=== PATIENT | female | born 1950 | race Caucasian/White ===

== ENCOUNTER 2020-08-05 22:55 | Inpatient (IN) | payer OTHER ==
[~2020-08-05] VITALS: Ht 172.7 cm; Wt 66.3 kg
[2020-08-05 22:57] VITALS: BP 110/61
[2020-08-05] MEDS ORDERED: TRAZODONE HCL50 MG (23:09)
[2020-08-05] MEDS ORDERED: XANAX1 MG PO (23:10)
--- NOTE | 2020-08-05 23:11 | NUR ---
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
[2020-08-05 23:48] LABS: ABSOLUTE NEUTROPHILS 6.3 thou/uL (1.4-8.2); BASOPHILS 0.7 % (0.0-2.0); EOSINOPHILS 1.1 % (0.0-3.0); HEMATOCRIT 37.4 % (37.0-47.0); HEMOGLOBIN 12.2 gm/dL (12.0-15.0); LYMPHOCYTES 19.7 % (24.0-44.0); MCHC 32.6 g/dL (28.0-37.0); MCV 89.1 fL (80.0-100.0); MONOCYTES 7.2 % (1.0-8.0); PLATELET COUNT 233 thou/uL (150-400); POLYS 71.3 % (36.0-66.0); RBC 4.19 mil/uL (4.20-5.00); RDW 15.2 % (10.5-14.5); WBC 8.8 thou/uL (4.0-11.0)
[2020-08-05 23:53] LABS: URINE BILIRUBIN NEGATIVE (Negative); URINE BLOOD NEGATIVE (Negative); URINE CLARITY CLEAR; URINE COLOR YELLOW; URINE GLUCOSE-RANDOM* NEGATIVE (Negative); URINE KETONES TRACE (Negative); URINE NITRITE-REFLEX NEGATIVE (Negative); URINE PROTEIN (DIPSTICK) NEGATIVE (Negative); URINE UROBILINOGEN 0.2 E.U./dl (0.2-1.0)
[2020-08-05 23:54] LABS: URINE LEUKOCYTES-REFLEX 1+ (Negative)
[2020-08-05 23:57] LABS: ANION GAP 12 mmol/L (7-16); BUN 20 mg/dL (7-18); CALCIUM 9.1 mg/dL (8.5-10.1); CHLORIDE 101 mmol/L (98-107); CO2 23 mmol/L (21-32); CREATININE 1.1 mg/dL (0.6-1.0); GLUCOSE 219 mg/dL (74-106); POTASSIUM 3.8 mmol/L (3.5-5.1); SODIUM 136 mmol/L (136-145)
[2020-08-06] VITALS (7 sets, daily range): BP systolic 94–128; BP diastolic 50–65
[2020-08-06 00:02] LABS: AMP/METHAMP Negative (Negative); BARBITURATES Negative (Negative); BENZODIAZEPINES POSITIVE (Negative); COCAINE Negative (Negative); METHADONE Negative (Negative); OPIATES Negative (Negative); PCP Negative (Negative)
[2020-08-06 00:04] LABS: BACTERIA-REFLEX 1-9 Few /HPF (None Seen); HYALINE CASTS 4-10 Moderate /LPF (None Seen); MUCUS 0-3 Light strn/LPF (None Seen); SQUAMOUS 4-10 Moderate /LPF (0-3); URINE RBC 0-2 Rare /HPF (0-2)
[2020-08-06 00:05] LABS: CRYSTALS None Seen /LPF (None Seen); WBC CLUMPS Few (None Seen)
[2020-08-06 00:07] LABS: ALBUMIN 3.9 g/dL (3.4-5.0); MAGNESIUM 1.8 mg/dL (1.8-2.4); SALICYLATE < 2.8 mg/dL (2.8-20.0); SGOT 26 U/L (15-37); SGPT 17 U/L (30-65); TOTAL BILIRUBIN 0.3 mg/dL (0.2-1.0); TOTAL PROTEIN 7.4 g/dL (6.4-8.2); TROPONIN-I <0.06 ng/mL (<0.06)
--- NOTE | 2020-08-06 04:00 | NUR ---
PT ARRIVED TO THE UNIT AT AROUND 0200 HRS. PT WITH SITTER. PT TALKING ENDLESSLY AND VERY RESTLESS. WALKED TO THE BATHROOM AND VOIDING OKAY. PT STATING FAMILY TRICKED INTO BRINGING HER TO THE HOSPITAL. KNOWS HER NAME, AND TIME.SHE HAS CLEAR SPEECH.REFUSED TO GIVE ME NAME OF PHARMACY BEAUSE SHE SAYS ALL PRESCRIPTIONS THEY HAVE IS WRONG.TOOK MEDS OKAY. NO SWALLOW ISSUES. SKIN INTACT, JUST SOME BRUISING TO HANDS. SOME SWELLING TO LEGS., MORE TO THE LEFT.AFTER A WHILE PATIENT SLEPT IN CHAIR. SHE USES /NC AT [facility]. REPORT GIVEN TO DAY SHIFT [email or web address].
--- NOTE | 2020-08-06 09:30 | EKG ---
[facility] [address] [place] [address] ELECTROCARDIOGRAM REPORT Name: JUAQUINMANUEL Room #: 435- ADM IN M.R.#: [id number] Admission: 08/06/20 Attend Phys: Souleymane Rogers MD Discharge: Date of : 52 Report #: [id number] THIS REPORT FOR: cc: Physician not on staff Physician not on staff Ancelmo Santoyo MD [facility] ~ THIS REPORT FOR: //name// [facility] ED Test Date: 2020-08-06 Test Time: 00:44:28 Pat Name: MANUEL REZA Department: Room: [facility] Gender: F Grading Clerk: JOSEE : 1950 Requested By: Félix Mcgowan Order Number: [id number] MD: Ancelmo Santoyo Measurements Intervals [place] Rate: 106 P: 87 TX: 81 QRS: -16 QRSD: 90 T: 39 QT: 344 QTc: 457 Interpretive Statements Sinus tachycardia Borderline left axis deviation No previous ECG available for comparison Electronically Signed On 08-06-2020 9:30:47 CDT by Ancelmo Santoyo [email or web address] <ELECTRONICALLY SIGNED> By: Ancelmo Santoyo MD, FACC 08/06/2030 0044 0044 Ancelmo Santoyo MD, [facility] /EPI
--- NOTE | 2020-08-06 12:29 | NUR ---
Assumed care of pt at 0700. Pt appears to be manic at this time. Psych doctor saw pt. New orders noted. talked to family member DPOA as well. Pt refuses IV antibiotic. Provider aware. Sitter in the room. 2L O2 at night. Will continue to monitor.
[2020-08-06] MEDS ORDERED: SPIRONOLACTONE50 MG PO (15:38)
[2020-08-06] MEDS ORDERED: LASIX 40 MG TAB40 MG PO (15:56)
[2020-08-06] MEDS ORDERED: KLOR-CON 10 ER10 MEQ PO (15:57)
[2020-08-06] MEDS ORDERED: VITAFOL-OB+DHA1 EACH PO (15:58)
[2020-08-06] MEDS ORDERED: ASA81BEC PO (15:58)
[2020-08-06] MEDS ORDERED: PEPCID40 MG PO (15:58)
--- NOTE | 2020-08-07 04:02 | NUR ---
PT AMBULATING TO BATHROOM INDEPENDENTLY AND IS TOLERATING WELL. DENIES PAIN. SITTER WITH PT. RESTING COMFORTABLY. NO NEEDS VOICED. CALL LIGHT WITHIN REACH. FREQUENT OBSERVATION.
[2020-08-07 05:37] VITALS: BP 115/49
--- NOTE | 2020-08-07 12:42 | NUR ---
PT IS MANIC AND REFUSED ALL MEDICATION EXCEPT MAG CITRATE. PT REPORTS SHE NEEDS 2-3 BOTTLES TO HAVE A BM. PT HAS 1:1 SITTER FOR SAFETY. PT WAS OUT OF CONTROL, COMBATIVE WITH STAFF DURING A MANDATORY IM INJECTION ORDER BY THE DOCTOR. PT WAS SCREAMING AND YELLING AT STAFF. PT PULLED OUT HER OWN IV ON HER RIGHT ARM. PT RECEIVED THE IM INJECTION IN HER RIGHT BUTTOCKS. PT GOT INTO THE WHEELCHAIR AND ALLOWED STAFF TO TAKE HER UP TO THE [facility] UNIT. NURSE AND SUPERVISOR WET ROOM TOOK PT AND HER BELONGINGS. PT'S DAUGHTER WAS ADVISED BY THE DOCTOR THAT THE PT WAS GOING TO 5S UNIT. NURSE GAVE REPORT BEFORE TRANSFER.
[2020-08-07 13:09] LABS: HEMATOCRIT 34.7 % (37.0-47.0); HEMOGLOBIN 11.4 gm/dL (12.0-15.0); MCH 29.4 pg (26.0-34.0); MCHC 32.8 g/dL (28.0-37.0); MCV 89.7 fL (80.0-100.0); RBC 3.87 mil/uL (4.20-5.00); RDW 15.2 % (10.5-14.5); WBC 3.2 thou/uL (4.0-11.0)
[2020-08-07 13:18] LABS: CALCIUM 8.4 mg/dL (8.5-10.1); CREATININE 1.1 mg/dL (0.6-1.0); MAGNESIUM 2.4 mg/dL (1.8-2.4); POTASSIUM 3.6 mmol/L (3.5-5.1)
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
== END 2020-08-07 12:51 | DRG 885 ==
LOC: ER 22:55 → EROBS 08-06 01:07 → 4S 08-06 01:07
PROVIDERS: Emergency Medicine; Nurse Practitioner Family; ADMIT Hospitalist; ATTEND Hospitalist
DX: F23 Brief psychotic disorder (principal); J96.11 Chronic respiratory failure with hypoxia; I50.32 Chronic diastolic (congestive) heart failure; F03.90 Unspecified dementia, unspecified severity, without behavioral disturbance, psychotic disturbance, mood disturbance, and anxiety; G47.33 Obstructive sleep apnea (adult) (pediatric); I48.91 Unspecified atrial fibrillation; F41.9 Anxiety disorder, unspecified; F31.9 Bipolar disorder, unspecified; N31.2 Flaccid neuropathic bladder, not elsewhere classified; Z60.2 Problems related to living alone; K59.00 Constipation, unspecified; Z96.653 Presence of artificial knee joint, bilateral; Z90.710 Acquired absence of both cervix and uterus; Z79.82 Long term (current) use of aspirin; Z87.891 Personal history of nicotine dependence; Z79.899 Other long term (current) drug therapy; Z90.49 Acquired absence of other specified parts of digestive tract; Z20.828 Contact with and (suspected) exposure to other viral communicable diseases
CPT/HCPCS: 10195

== ENCOUNTER 2020-08-07 12:52 | Inpatient (IN) | payer OTHER ==
[~2020-08-07] VITALS: Ht 167.6 cm; Wt 69.1 kg
[~2020-08-07 12:52] MED LIST: ASA81BEC PO; KLOR-CON 10 ER10 MEQ PO; LASIX 40 MG TAB40 MG PO; PEPCID40 MG PO; SPIRONOLACTONE50 MG PO; TRAZODONE HCL50 MG; VITAFOL-OB+DHA1 EACH PO; XANAX1 MG PO
[2020-08-07 14:00] VITALS: BP 100/63
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
--- NOTE | 2020-08-07 18:41 | NUR ---
Spoke to pt's daughter/DPOA, Mei [phone]. She inquired about treatment plan. She stated the DPOA has been enacted, as such, she would like her mother to be placed in a facility. The two facilities she would like to consider are: [facility] in [place], [place] and [facility] in [place], [place]. SW informed dtr, that SW team will assist with the discharge process based on recommendations. SW team will continue to follow throughout hospitalization.
[2020-08-07 19:22] VITALS: BP 104/52
[2020-08-07 23:33] VITALS: BP 104/52
--- NOTE | 2020-08-08 03:02 | NUR ---
Assumed care of patient this pm shift. Patient is frustrated and irritable and jenna often. Patient feels as though she would benefit from care moreso at . Patient is alert and oriented x4. Patient did not want to take medication this pm shift but with much explanation decided to as opposed to a shot. Patient has many medical issues and a great understanding of how she believes treatment should be continued. Patient states that she has disowned her children because they do not have time for her and want her money. Patients assessment shows no signs of acute distress. Oxygen was placed on patient at approximately 1230 am at 2 liters/min. Patients mood has been variable all evening. We will continue to monitor patient per hospital policy.
[2020-08-08 07:46] VITALS: BP 80/44
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
--- NOTE | 2020-08-08 14:14 | NUR ---
RONALD reviewed pt's chart and did not see DPOA doc. RONALD contacted Mei and introduced herself as well as left contact information. RONALD asked Mei to email a copy of Dpoa doc. She did so. RONALD placed the doc in pt's chart. RONALD spoke with pt who said she is not manic and wants to be d/c'd home. RONALD and talked with pt about DPOA. Pt said she revoked it verbally. RONALD explained they need a document dated after her initial DPOA doc in January 2018. She said she does not have that. She said she , in her words, acts "crazy" when placement is brought up. SW explained that does not help her case. Pt responded that she has a neuropsych exam scheduled this week. She denies being manic. RONALD and Dr. Silva observed pt's speach be hyperverbal. After RONALD left pt's room she observed from the nursing stating pt make and remake her bed several times. RONALD team will continue to follow pt during her stay on this unit.
[2020-08-08 17:30] VITALS: BP 105/53; BP 114/48; BP 96/63
--- NOTE | 2020-08-08 19:15 | NUR ---
0700 ASSUMED CARE OF PATIENT PATIENT IN BED AT THAT TIME SLEEPING. PATIENT CALM AND COOPERATIVE. PATIENT OUT TO DAYROOM REQUESTING COFFEE. PATIENT TAKES MEDICATION WHOLE WITHOUT DIFFICULTY AFTER DISCUSSING MEDICATIONS WITH DR NICHOLE. PATIENT AMBULATES WITH STEADY GAIT. NO C/O PAIN. PATIENT CONCERN IS SHE NEEDS HER CARDIOMEMZ TO DO HER DAILY RECORDING. PATIENT REQUESTING BED AJUSTMENT MULTIPLE TIMES THROUGHOUT THE DAY. PATIENT COMPLAINING OF HOSPITAL STAY AND REQUESTING TO BE TRANSFERED TO . PATIENT WAS NOTED OUT IN DAYROOM MORE THIS AFTERNOON AND COMMUNICATING WITH OTHERS.
[2020-08-08 19:31] VITALS: BP 119/58
--- NOTE | 2020-08-08 22:08 | NUR ---
Care assumed of patient at 1915: Patient seated in dayroom, watching football at start of shift. Patient alert and oriented x4. Patient expansive, excessive speech, easily irritable. Denies pain and discomfort. Denies SI/HI/AH/VH. 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 This could be accurate to an extent. Patient took HS medication whole without difficulty. Patient cooperative with medication and reports understanding. Patient ate 100% HS snack. Blood pressure WNL this evening. Patient retired to bed, O2 NC placed with 2L continuous. Sitter at bedside. However, patient remains awake and talking excessively.
[2020-08-09 09:19] VITALS: BP 108/61
--- NOTE | 2020-08-09 13:31 | NUR ---
0700 ASSUMED CARE OF PATIENT, PATIENT SITTING IN CHAIR IN ROOM AT THAT TIME. PATIENT AWAKE AND ALERT, ORIENTED X4. PATIENT DENIES NEEDS AT THAT TIME. PATIENT ATE 10% OF BREAKFAST. PATIENT "STATES FOOD IS NOT GOOD". 0850 PATIENT AMB TO ROOM WITH STEADY GAIT. MEDICATIONS GIVEN WHOLE WITHOUT DIFFICULTY. VS THIS AM BP- 108/61 P- 89 R- 16 TEMP- 98.2 O2 SATS- 98%. PATIENT IS CALM AND COOPERATIVE. 0910 PATIENT PRESENT IN GROUP THIS AM. 1320 PATIENT REFUSED CIPRO ORERED BY DR PITTS. PATIENT STATES "I DO NOT HAVE A UTI AND I WILL NOT TAKE CIPRO". "NOT ONLY SHOULD I NOT TAKE THAT MEDICATION, THE URINE COLLECTED WAS NOT A CLEAN CATCH AND WAS CONTAMINATED SO IT IS NOT A TRUE INFECTION". PATIENT ASKS TO SEE RESULTS OF UA AND THEN GOES INTO DETAIL ON RESULTS TO WHY THE TEST IS INCORRECT". PATIENT TO DAYROOM AND PRESENT IN GROUP AT THIS TIME.
--- NOTE | 2020-08-09 14:34 | NUR ---
RONALD received a letter of incapacitation for Dr. Silva. RONALD contacted Mei and obtained her email of [email or web address]. RONALD sent the letter via encrypted email. SW team will continue to follow pt during her stay on this unit.
[2020-08-09 14:43] LABS: URINE BILIRUBIN NEGATIVE (Negative); URINE BLOOD 3+ (Negative); URINE CLARITY CLEAR; URINE COLOR YELLOW; URINE GLUCOSE-RANDOM* NEGATIVE (Negative); URINE KETONES NEGATIVE (Negative); URINE LEUKOCYTES TRACE (Negative); URINE NITRITE NEGATIVE (Negative); URINE PROTEIN (DIPSTICK) TRACE (Negative); URINE UROBILINOGEN 0.2 E.U./dl (0.2-1.0)
[2020-08-09 14:46] LABS: HYALINE CASTS 0-3 Few /LPF (None Seen); SQUAMOUS 0-3 Few /LPF (0-3); URINE RBC 3-10 Few /HPF (0-2)
[2020-08-09 14:47] LABS: BACTERIA 1-9 Few /HPF (None Seen); CRYSTALS None Seen /LPF (None Seen); URINE WBC None Seen /HPF (0-5)
[2020-08-09 15:46] LABS: HEMATOCRIT 36.1 % (37.0-47.0); HEMOGLOBIN 11.9 gm/dL (12.0-15.0); MCH 29.6 pg (26.0-34.0); MCV 89.6 fL (80.0-100.0); PLATELET COUNT 152 thou/uL (150-400); RBC 4.03 mil/uL (4.20-5.00); RDW 15.1 % (10.5-14.5)
[2020-08-09 16:00] VITALS: BP 121/56; BP 122/78
[2020-08-09 16:05] VITALS: BP 122/78
[2020-08-09 16:06] LABS: ALBUMIN 3.1 g/dL (3.4-5.0); CALCIUM 8.5 mg/dL (8.5-10.1); CREATININE 0.8 mg/dL (0.6-1.0); POTASSIUM 3.9 mmol/L (3.5-5.1); TOTAL BILIRUBIN 0.4 mg/dL (0.2-1.0); TOTAL PROTEIN 6.6 g/dL (6.4-8.2)
[2020-08-09 16:09] LABS: ABSOLUTE NEUTROPHILS 1.9 thou/uL (1.4-8.2)
[2020-08-09 16:10] VITALS: BP 135/80
[2020-08-09 16:10] LABS: ANISOCYTOSIS 1+
[2020-08-09 16:11] LABS: HYPOCHROMASIA 2+; POLYCHROMASIA OCCASIONAL
[2020-08-09 19:35] VITALS: BP 120/53
--- NOTE | 2020-08-09 22:21 | NUR ---
Care assumed of patient at 1915: Patient seated in dayroom, watching TV at start of shift. Patient alert and oriented x4. Patient has excessive, rambling language, hyperverbal. Intrusive as staff was providing care to other patients. Patient required re-direction several times on respecting boundaries of peers and staff. Denies pain and discomfort. Denies anxiety and depression. Denies SI/HI/AH/VH. Patient ate 100% HS snack. Refused to take HS dose of Cipro. Initially stated that she was allergic, later stated she was not allergic but didn't feel she needed it, then later stated that she does need it but not until tomorrow morning. Patient reports that she is admitted to get "the dementia under control". Patient took other HS medication without difficulty. 1:1 sitter in room with O2 NC 2L/min continuously.
[2020-08-10 07:27] VITALS: BP 94/50
[2020-08-10 11:03] VITALS: BP 126/80
--- NOTE | 2020-08-10 12:15 | NUR ---
1045 RESUMMED CARE FROM OVERNIGHT SHIFT THIS AM, PATIENT IN DAYROOM WATCHING TV. PATIENT ATE BREAKFAST TOOK MEDICATION WITHOUT INCIDENCE, PATIENT DENIES SI/HI/AH/VH AT PRESENT. PATIENTS ABDOMEN SOFT ROUND BOWEL SOUNDS PRESENT, LUNGS CLEAR, NO SKIN ISSUES. PATIENT ORIENTED TIMES 4 PATIENT PLESANT CALM TALKED WITH DAUGHTER TODAY. WILL CONTINUE TO MONITOR PATIENT FOR SAFETY AND BEHAVIORS.
[2020-08-10 19:34] VITALS: BP 106/66
--- NOTE | 2020-08-10 23:09 | NUR ---
Care assumed of patient at 1915: Patient seated in dayroom at start of shift. Alert and oriented x4. Expansive, hyperverbal speech. Patient needing reminders to respect personal boundaries and to not speak for other peers. Patient took HS medication without difficulty. Ate 100% HS snack. Verbally intrusive as staff are speaking to her or others. Hyper body language at times, likes to get up and pace. Patient spoke with her daughter on the phone this evening. Denies pain and discomfort. Denies SI/HI/AH/VH. Denies anxiety and depression. Nurse entered room to apply O2 and sit with patient. Patient initially refused O2 stating she was ready to go to sleep, despite appearing to be sleeping. Nurse educated and patient complied by wearing O2. Nurse remains at bedside and patient sleeping quietly.
[2020-08-11 07:38] VITALS: BP 97/53
--- NOTE | 2020-08-11 12:24 | NUR ---
RONALD sent referrals to the following facilities: [facility] - referral sent 08/11 [facility] - referral sent 08/11 [facility] - referral sent 08/11 [facility] - referral sent 08/11 [facility] - referral sent 08/11 [facility] - referral sent 08/11 [facility] - referral sent 08/11 RONALD notified Mei via email that she had done so. RONALD team will continue to follow pt during her stay on this unit.
--- NOTE | 2020-08-11 17:58 | NUR ---
Alert and orientated X4. Denies HI/SI. 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 Dr. Smith notified. Interactive with staff and peers. 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 Breath sounds clear. Slightly irregular HR auscultated. Color pink with brisk capillary refill and palpable peripheral pulses. Independent with voiding. Active bowel sounds over soft, rounded abdomen. Reg, steady gait. Self administered suppository under supervision late in the afternoon. Currently resting in room.
[2020-08-11 19:43] VITALS: BP 87/49
[2020-08-11 22:05] VITALS: BP 87/49
--- NOTE | 2020-08-12 01:58 | NUR ---
Assumed care of patient this pm shift. Patient in good spirits. Patient denies pain. Patient denies hi/si. Patient is calm and cooperative and medication adherent. Patient takes medicaitons whole with thin fluids. Patient is excited to get discharged to an assisted living this week. Patient is alert and oriented x4. Patient is ambulatory and walks with a steady gait. Patients affect is euthymic. We will continue to monitor per hospital policy and procedure.
[2020-08-12 07:15] VITALS: BP 88/50
--- NOTE | 2020-08-12 14:00 | NUR ---
PATIENT WAS UP, OUT, SITTING IN DAYROOM WHEN CARE ASSUMED. PATIENT IS ALERT, AND ORIENTED X 3-4, ABLE VOICE NEED. PATIENT TOOK ALL MEDICATION WHOLE ONE AT A TIME WITHOUT DIFFICULTY. PATIENT IS EATING MEALS, AND DRINKING FLUID WELL. PATIENT DENIES SUCIDAL/HOMICIDAL IDEATION "HEAVENS NO, GIVE ME A BREAK, AM THINKING ABOUT HOW TO GO HOME". PATIENT DENIES DEPRESSION/ANXIETY, DENIES AUDITORY/VISUAL HALLUCNIATION. PATIENT TOOK SHOWER THIS AFTERNOON WITH SET-UP ASSIT, WELL TOLERATED. PATIENT DENIES HAVING PHYSICAL PAIN. AFFECT IS BRIGHT, MOOD IS EUTHYMIC. PATIENT AMBULATES WITH STEADY GAIT, NO SIGN OF ACUTE DISTRESS NOTED AT THIS TIME, WILL MONITOR FOR SAFETY.
--- NOTE | 2020-08-12 14:08 | NUR ---
RONALD received a call from RONALD Medley with APS [phone] stating she spoke to the corporate office of [facility]. [facility]. RONALD spoke to [facility]/ [facility] Admissions [phone] to confirm this information. He requested RONALD fax over a referral packet. Request completed.
[2020-08-12 19:36] VITALS: BP 95/54
--- NOTE | 2020-08-13 03:21 | NUR ---
Assumed care of pt @ 1900. Pt calm et cooperative with pleasant demeanor this shift. Took medications whole without difficulty. Ambulates the halls ad elysia with steady gait. Socialized with peers in dayroom until HS. VSWNL. Health assessment with no abnormalities at present time. Denies SI/HI/AVH at present time. Currently resting in bed with eyes closed et O2 @ 2% per orders. 1:[address] for HS O2 use. Will continue to monitor per protocol.
[2020-08-13 07:15] VITALS: BP 95/51
--- NOTE | 2020-08-13 11:56 | NUR ---
DURING WEEK ONE OF HER ADMISSION, MANUEL HAS BEEN VERY INTERACTIVE WITH HER PEERS AND STAFF MEMBERS. PT HAS PROVIDED GREAT ATTENDANCE WELL A POSITIVE ATTITUDE WHILE ATTENDING RECREATION THERAPY GROUPS. IT IS ENCOURAGED BY THE RECREATION THERAPIST THAT SHE WILL CONTINUE TO IMPROVE HER COPING SKILLS AND SELF ESTEEM TO REDUCE ANY STRESS OR ANXIETY.
--- NOTE | 2020-08-13 14:39 | NUR ---
Alert and orientated X 4. Calm, cooperative and compliant. Interactive with staff and peers. Denies SI/HI. Requesting preservative free eye gtts for dry eyes. Breath sounds clear t/o. Slightly irregular HR auscultated. Color pink with brisk capillary refill and palpable peripheral pulses. Independent with voiding. Reports BM yesterday. Active bowel sounds over soft, rounded abdomen. Regular, steady gait. Participating in groups and watching TV. No s/o distress.
[2020-08-13 19:44] VITALS: BP 88/48
--- NOTE | 2020-08-14 02:35 | NUR ---
08-13 CARE TRANSFERRED 1899 OBSERVED PT WALKING IN HALWAY. 194 PT AAOX3, VSS, RR EVEN AND NONLABORED ON RA. PT DENIES ANY PAIN AND SI/HI. PT REMAINED PLEASANT, CALM AND COOPERATIVE THROUGHOUT NURSING ASSESSMENT. DURING MEDICATION ADMIN PT HAD NO DIFFICULTIES. ASSISTED PT WITH SETTING UP 02 TUBING AND SETTING AT 2L, PT IS CURRENTLY ON 1:1 AT NIGHT WHILE USING O2 FOR PT SAFETY. LATER NOTED PT 02SAT 94% RR EVEN AND NONLABORED ON 2L 02. ZERO S/S OF ACUTE DISTRESS NOTED, PT WILL CONTINUE TO BE MONITOR 1:1.
[2020-08-14 07:45] VITALS: BP 93/36
--- NOTE | 2020-08-14 10:30 | NUR ---
Assumed care 0700. Upon initial encounter in dayroom patient was pleasant, smiling, articulate, alert, oriented x 4. Able to request wanting her pills one at a time, knew each of her pills, how many mg. She was cooperative/compliant with medications, attended AM RT group with participation. At one point left the group stating she was invited to leave and take a walk. She is steady on her feet. Voices no complaints/concerns.
--- NOTE | 2020-08-14 12:10 | NUR ---
Assumed care 0700. Pleasant, cooperative, med compliant. She mostly engages staff in conversation. No delusional content noted. She was out of her bed most of the day. Attended RT morning group with participation.
[2020-08-14 12:48] VITALS: BP 91/60
--- NOTE | 2020-08-14 17:15 | NUR ---
Patient eating meals without difficulty. she like most of other patients preferred to watch the football game and opt out of an RT group and SW group. She mostly engages the staff in conversation. Denies SI/HI/AH/VH and does not display any behaviors suggesting either ideation or hallucinations. Her conversations were not delusional based. She talked of happy subjects and mentioned she had 5 of the nation's top doctors working with her. She voiced much hope for her future.she was not seen interacting with peers.
[2020-08-14 18:30] VITALS: BP 91/60
[2020-08-14 19:24] VITALS: BP 98/56
--- NOTE | 2020-08-14 20:27 | NUR ---
Assumed care on 08/14/20 @ 19:15, ambulating ad elysia throughout the mileu. 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 Will continue to monitor as per unit protocol.
[2020-08-14 22:44] VITALS: BP 98/56
--- NOTE | 2020-08-15 06:33 | NUR ---
Slept 5.8 hours overnight.
[2020-08-15 07:54] VITALS: BP 86/38
--- NOTE | 2020-08-15 11:12 | NUR ---
SW left message with Jasmyne younger/ [facility] [phone] and informed that [facility] declined the referral due to pt's bipolar dx.
[2020-08-15 12:00] VITALS: BP 98/54
--- NOTE | 2020-08-15 15:58 | NUR ---
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 STATES TEARFULLY DURING SHE DOES NOT WANT TO BE HERE AND BELIEVES SHE IS "READY TO GO" "THEYN ARE JUST WAITING ON MEDICAID" BP THIS AM WAS NOTED TO BE 87/53 ON MACHINE. RECHECKED MANUALLY AT APPROX 1100 AND IS 98/54. DENIES LIGHTHEADNESS,DIZZINESS ETC. DEMNIES SI/SH/HI OR C/O PAIN/DISCOMFORT
--- NOTE | 2020-08-15 16:08 | NUR ---
SW provided Pt with a copy of the temporary guardianship orders
[2020-08-15 17:47] VITALS: BP 98/54
[2020-08-15 22:25] VITALS: BP 98/54
--- NOTE | 2020-08-16 01:25 | NUR ---
Assumed care of patient this pm shift. Patient is in good spirits, calm and cooperative. Patient denies pain. Patient denies hi/si. Patient is alert and oriented x4. Patient shows no signs of acute distress. Patient is ambulatory and walks with a steady gait. Patient is not considered a falls risk. Patient takes medications whole with thin fluids. Patient wears 2 l/m of oxygen at night. Patient requested a suppository this evening and inserts it herself without assistance. Patient is looking forward to going home soon. We will continue to monitor per hospital policy.
[2020-08-16 08:43] VITALS: BP 88/32
[2020-08-16 08:45] VITALS: BP 88/32
--- NOTE | 2020-08-16 14:11 | NUR ---
Assess due to length of stay. Admit to [facility] for [facility]. On regular diet, eats 100% of meals and able to request own alternative selections. Wt up 7 lb, has diuretics ordered. Low nutrition risk
--- NOTE | 2020-08-16 14:27 | NUR ---
Assumed care of patient at 0700. Up ad elysia. gait steady. Up in dayroom. Eating meals in dayroom. Alert and oriented X4. Cooperative with care. No cough. Using a mask when out in the dayroom. Participating in groups. No complaints. Denies pain or discomfort. Pleasant when approached. Says is making plans for after hospital care.
--- NOTE | 2020-08-16 14:57 | NUR ---
[facility]- declined the Pt
--- NOTE | 2020-08-16 17:27 | NUR ---
Referrals sent to the following: [facility]- [phone] [facility]-[phone] [facility] -[phone] [facility]
[2020-08-16] MEDS ORDERED: TRAZODONE HCL100 MG PO (17:34)
[2020-08-16] MEDS ORDERED: HALOPERIDOL 5 MG5 MG PO ×2 (17:35)
[2020-08-16 19:30] VITALS: BP 90/33
--- NOTE | 2020-08-16 21:13 | NUR ---
ASSUMED CARE FROM DAY SHIFT PT CALM COOPERATIVE , REPORT CALLED TO GILDA CHAPMAN. PO MEDICATION GIVEN PRIOR TO TRANSFER.
--- NOTE | 2020-08-17 20:01 | D ---
[facility] [address] [place] [address] DISCHARGE SUMMARY Name: MANUEL REZA Room #: 519B-B [facility] M.R.#: [id number] Admission: 08/07/20 Attend Phys: Lamont Silva DO Discharge: 08/16/20 Date of : 52 Report #: [id number] THIS REPORT FOR: cc: Physician not on staff Physician not on staff Lamont Silva DO ~ THIS REPORT FOR: //name// CC: Lamont Silva Physician staff DATE OF SERVICE: 08/17/2020 INPATIENT PSYCHIATRIC DISCHARGE SUMMARY ATTENDING PHYSICIAN: Lamont Silva DO. BILLING ANALYST: Patrick Smith MD DISCHARGE DIAGNOSES: Bipolar 1 disorder, most recent episode manic, severe degree. Additional comorbidities for this patient include history of anoxic brain injury, history of traumatic brain injury, hyperglycemia, urinary tract infection. The patient will be discharged into the medical floor due to the coronavirus epidemic. The patient will require ongoing psychiatric and general medical care, assisted living, recommended for placement. DISCHARGE MEDICATIONS: Include trazodone 150 mg p.o. at bedtime for sleep, Haldol 5 mg p.o. at 0900 and 2100 for mood stabilization, Haldol 2.5 mg p.o. at 1300 for mood stabilization, spironolactone 50 mg p.o. daily for hypertension and potassium, Lasix 60 mg p.o. daily for history of congestive heart failure, vitamin daily, aspirin 81 mg p.o. daily for heart protection, famotidine 40 mg p.o. at bedtime for GERD. DISCHARGE DIET: The patient's diet is regular. ACTIVITY LEVEL: As tolerated. I would recommend against driving at this point. LABORATORY DATA ON THIS ADMISSION: Hematology from 08/09/2020, H and H 11.9 and 36.1, white count 3.0, platelets 152. Chemistries: Sodium 137, potassium 3.9, chloride 104, bicarbonate 23, anion gap 10, creatinine 0.8, estimated GFR 71, glucose 116, calcium 8.5. Total bilirubin 0.4, AST 47, ALT 30, alkaline phosphatase 112, total protein 6.6, albumin 3.1. Urinalysis had multiple positives. COVID-19 PCR serology was negative on the and . The urine culture was negative. REASON FOR ADMISSION: Back on 08/07/2020 or so, a 69-year-old female [address] [address] DISCHARGE SUMMARY Name: MANUEL REZA Room #: 519B-B [facility]#: [id number] Admission: 08/07/20 Attend Phys: Lamont Silva, Discharge: 08/16/20 Date of : 52 Report #: [id number] who was admitted to the Medical Unit for a couple of days due to her requiring oxygen at night. She was quite manic down there. She was recording Dr. Silva with cellular phone in her medical room. She is living in [place], [place] with her daughter and the rigoberto intensified including her disrobing in an optical store and attempting to enter a stranger's home. HOSPITAL COURSE: The patient was admitted to Geriatric Psychiatry Unit. Initially, she was quite pressured with speech. In a couple of hour range, her sleep improved, her speech became less pressured. At this time, I have had some difficulty with placement, as the facility she and her daughter were favoring declined to accept her. The patient was open today. Her daughter wants her to stay with her, so they can get more time to find an assisted living. PHYSICAL EXAMINATION: VITAL SIGNS: On the day of discharge are as follows: Temperature 35.1, pulse 66, respirations 18, BP 90/33, O2 sat 97%. MUSCULOSKELETAL: Seen through the televideo seated, slightly unkempt. MENTAL STATUS EXAMINATION: This is a well-developed, fairly nourished female with BMI of 24.6. Attention intact. Concentration intact. Speech is normal rate, volume and tone. Thought process linear and goal redirected. Thought content, focused on discharge. Denied SI, HI. Denies hopelessness or helplessness. No auditory, visual, or tactile hallucinations. Memory not formally tested. Insight fair to limited. Judgment fair. Fund of knowledge above average. Prognosis for this patient is fair if she maintains good health and receives some assistance daily is recommendation. <ELECTRONICALLY SIGNED> By: Lamont Silva DO 08/17/202000 28 34 Lamont Silva DO /nt
== END 2020-08-16 21:20 | disposition short-term general hospital (02) | DRG 885 ==
LOC: SBH 12:52
PROVIDERS: Internal Medicine; ADMIT Psychiatry & Neurology Psychiatry; ATTEND Psychiatry & Neurology Psychiatry
DX: F31.2 Bipolar disorder, current episode manic severe with psychotic features (principal); J96.20 Acute and chronic respiratory failure, unspecified whether with hypoxia or hypercapnia; F23 Brief psychotic disorder; I48.20 Chronic atrial fibrillation, unspecified; I50.32 Chronic diastolic (congestive) heart failure; Z20.828 Contact with and (suspected) exposure to other viral communicable diseases; Z96.653 Presence of artificial knee joint, bilateral; K59.09 Other constipation; N31.9 Neuromuscular dysfunction of bladder, unspecified; G47.33 Obstructive sleep apnea (adult) (pediatric); I48.0 Paroxysmal atrial fibrillation; G90.8 Other disorders of autonomic nervous system; Z88.8 Allergy status to other drugs, medicaments and biological substances; Z90.49 Acquired absence of other specified parts of digestive tract; Z90.710 Acquired absence of both cervix and uterus; Z87.440 Personal history of urinary (tract) infections; Z88.1 Allergy status to other antibiotic agents
CPT/HCPCS: 10880

== ENCOUNTER 2020-08-16 20:25 | Inpatient (IN) | payer OTHER ==
[~2020-08-16] VITALS: Ht 157.5 cm; Wt 69.9 kg
[~2020-08-16 20:25] MED LIST changes: +HALOPERIDOL 5 MG5 MG PO; +TRAZODONE HCL100 MG PO
[2020-08-16 23:07] VITALS: BP 96/41
--- NOTE | 2020-08-17 | NUR ---
ADMITTED TO THE UNIT AT APPROXIMATELY 2130. PT IS A/O X4 AND IS UP WITH SBA TO THE BR. PT HAS STEADY GAIT. DENIES ANY PAIN OR DISCOMFORT. VSS. FALL PRECAUTIONS ARE IN PLACE, CALL LIGHT IS WITHIN REACH. WILL CONTINUE TO MONITOR.ADMISSION COMPLETED. NO BEHAVIORAL ISSUES NOTED. AT THIS TIME PT IS LYING IN HER BED WITH NC AT 2 LITERS AND APPEARS TO BE SLEEPING.
[2020-08-17 07:35] VITALS: BP 96/53
--- NOTE | 2020-08-17 08:02 | NUR ---
Nutrition: Assessing for 2 point risk per nutrition screen for pt reporting 2-13# of weight loss, decreased appetite. Admit w/ confusion. Just discharged from [facility] unit yesterday where she was there for bipolar I disorder. Hx also includes TBI/anoxic brain injury per EMR. Pt just assessed by RD yesterday, 08/16, for LOS on [facility] unit. Pt in fact has not lost any weight, is actually up +6# since original admit to [facility] and has been eating essentially 100% of meals. Meal average from 08/12 - 08/15 = 98%. Weight up from 146.2# on 08/05, to 152.3# on 08/16. Is on diuretics now. Given lack of weight loss/no eating concerns, pt no longer meets nutrition consult criteria. MST score = 0. Will follow weekly for any nutrition changes. Low nutrition risk otherwise.
--- NOTE | 2020-08-17 08:35 | NUR ---
PT STATED SHE NEEDS HER HEMORROID CREAM, SHE STATES SHE USES 3 TIMES A DAY. SHE ALSO WANTING TO HAVE 40MG OF PEPCID INSTEAD OF 20MG. PT LOOKS AT EVERY PILL AND WANTS THEM GIVEN ONE AT A TIME. PT LUNGS CLEAR. PT UP AD ZEFERINO. PT ORIENTED X4. NO COMPLAINTS OF PAIN. PT THINKING SHE WILL BE DISCHARGE TO GO TO DAUGHTERS, DOESN'T KNOW WHAT THE PLAN IS TODAY.
--- NOTE | 2020-08-17 12:39 | NUR ---
PT ADM HEMORROID SUPP AFTER LUNCH. PT ALSO WANTS TO KNOW WHEN SHE WILL BE DISCHARGED. PT STATED SHE IS READY TO GO.
--- NOTE | 2020-08-17 13:39 | NUR ---
PT WAS TRANSFERED FROM [facility]. SW FROM THAT UNIT HAD BEEN WORKING TO FIND PLACEMENT. PT'S DTR HAS TEMP GUARDINASHIP. CM TO CALL AND CHECK WITH THE 4 FACILITIES THAT REFERRALS WERE SENT TO. PT HAD BEEN INDICATING TO STAFF THAT SHE CAN GO HOME TO HER STR BUT THIS ISN'T THE CASE STILL PURSUING PLACEMENT. PT IS MEDICAID PENDING. CM TO FOLLOW INDICATED WITH DC PLANNING.
--- NOTE | 2020-08-17 15:51 | NUR ---
ROTARY ENGINE ASSEMBLER TALKED TO PT ABOUT WHY SHE IS STILL HERE.
[2020-08-17 20:04] VITALS: BP 86/53
--- NOTE | 2020-08-18 02:53 | NUR ---
Assumed pt care at 1900. A/Ox4,up ad elysia and wandering on the hallway at the beginning of the shift and needed redirection to stay in room;elopement risk,exit doors closed. Sitter provided for pt d/t oxygen use at night d/t pt at risk of SI/HI. Denies any thoughts of SI/HI and looking forward to dc soon. No c/o pain, N/V. VSS.Continent of B&B. Resting quietly at this time,will continue to monitor pt.
[2020-08-18 03:47] VITALS: BP 93/37
[2020-08-18 07:17] VITALS: BP 98/56
[2020-08-18 15:05] VITALS: BP 124/46
--- NOTE | 2020-08-18 16:07 | NUR ---
CM HAD SPOKEN WITH PT YESTERDAY AFTERNOON AND INDICATED THAT FAR CM WAS AWARE NO PHYSICIANS HAD INDICATED THAT SHE IS CLEARED TO DISCHARGE ANYWHERE. CM CALLED AND SPOKE WITH PT'S TEMP GUARDIAN RUTH NEGRON. SHE CONFIRMED THE ABOE THAT SHE WISHES TO FIND AL PLACEMENT FOR HER MOTHER CLOSE TO [facility] POSSIBLE. SHE HOPES TO HAVE PT QUALIFY FOR THE MS AL WAIVER TO COVER COST OF AL STATED THEY CAN'T PAY OOP. CM INDICATED THAT IT WOULD BE VERY DIFFICULT TO FIND THIS TYPE OF PLACEMENT WITHOUT ACTIVE MEDICAID... SHE EXPRESSED UNDERSTANDING. CM FOLLOWED UP WITH FACILITIES THAT REFERRALS HAD BEEN SENT TO BY [facility], Referrals sent to the following: [facility]- [phone] [facility][phone]-LEFT [facility] -[phone]-DON'T TAKE [place] MEDICAID WAIVER PP AL STUDIO $2,995 PER MONTH WITH SERVICE FEES FROM $450-$2,100. [facility] -WANTED UPDATED NURSING NOTES. LABS.. CM REVIEWED NURSING NOTES TO SENT TO [facility] TODAY AND FOUND THAT PT IS ON SITTER AT NIGHT SHE NEEDS 2L O2 VIA NC AND PT IS RISK FOR SI/HI. CM TO FOLLOW INDICATED WITH DC PLANNING.
--- NOTE | 2020-08-18 19:49 | NUR ---
Assumed pt care this am, pt is up ad elysia and able to ambulate the hallways. And is able to make needs known. 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 Very particular of her medications and the timeliness of these. POC followed with no signs or verbalizations of distress, signs of confusion were noted as well. endorsed to the night nurse that as advised by previous shift, pt needs a sitter at night since she needs to be on O2 via vc and this needs to be on at all times.
[2020-08-18 20:30] VITALS: BP 86/48
--- NOTE | 2020-08-19 03:10 | NUR ---
PATIENT AOX4 MAKES NEEDS KNOWN. PATIENT IS UP AT ZEFERINO. PATIENT IS ON OXYGEN 2 L AT NIGHT NO SOA OR DISTRESS NOTED THIS SHIFT.PATIENT DENIED ALL PSYCH ISSUES. PATIENT IN BED ASLEEP AT THIS TIME BREATHING REGULAR AND UNLABOURED.
[2020-08-19 07:32] VITALS: BP 92/50
[2020-08-19 13:43] VITALS: BP 94/38
--- NOTE | 2020-08-19 15:23 | NUR ---
DR. OCHOA HAD SEEN PT VIRTUALLY YESTERDAY. CM HAD SENT UPDATED CLINICAL TO [facility] AND THEY ARE ACCEPTING OF PT PRIVATE PAY. THEY HAD REACHED OUT TO DTR/TEMP GUARDIAN MIGDALIA AND SHE INDICATED SHE DIDN'T WANT PT GOING THERE DUE TO DISTANCE AND NOT BEING ABLE TO PAY FOR IT OOP. CM CALLED AND SPOKE WITH PT'S [place] APS WORKER BERNIE AND EXPLAINED SITUATION THAT SHE IS MEDICALLY STABLE TO DC AND THAT DR. NICHOLE IS NO LONGER CONCERNED ABOUT HER LEOBARDO AND THAT HE WOULD BE CONFORTABLE WITH HER DISCHARGING HOME WITH HER DTR. CM SPOKE WITH DTR AND SHE INDICATED THAT SHE ISN'T OPPOSED TO THIS BUT WANTED TO SPEAK WITH APS WELL. CM TO FOLLOW UP WITH MIGDALIA SHORTLY. PHYSICIAN INDICATED THAT PT COULD BE MEDICALLY STABLE TO DC SOON OVER THE WEEKEND.
[2020-08-19 17:28] VITALS: BP 99/60
--- NOTE | 2020-08-19 19:34 | NUR ---
Assumed pt care this am, pt is up ad elysia and diet is well tolerated. Diet changed to regular. Pt requested for her thyroid medicine, informed md and this was renewed. POC followed with no signs or verbalizations of distress is noted. Continent of both bowel and bladder, endorsed to the night nurse.
[2020-08-19 20:52] VITALS: BP 80/47
--- NOTE | 2020-08-20 03:12 | NUR ---
PATIENT AOX4 MAKES NEEDS KNOWN. PATIENT IS UP AT ZEFERINO. PATIENT DENIED ALL PSYCH ISSUES. PATIENT HAD A FLAT AFFECT, GOOD EYE CONTACT, GOOD GROOMING AND HYGIENE. PATIENT WEARS 2L OF OXYGEN AT NIGHT. PATIENT IN BED ASLEEP AT THIS TIME BREATHING REGULAR AND UNLABOURED.
[2020-08-20 07:23] VITALS: BP 87/43
[2020-08-20 10:09] VITALS: BP 87/43
[2020-08-20 15:17] VITALS: BP 83/48
--- NOTE | 2020-08-20 18:26 | NUR ---
ASSUMED CARE OF PATIENT AT APPROX. 0900. ASSESSMENT CHARTED. MEDS ADMINISTERED PER JAN. VSS. PATIENT APPEARS TO BE A&OX4 W NO SIGNS OF DEMENTIA OR PYCHIATRIC PROBLEMS. PATIENT GETS UP INDEPENDENTLY W A STEADY GAIT. APPETITE IS ADEQUATE; PATIENT IS VOIDING WELL DESPITE HAVING A NEUROGENIC BLADDER; PATIENT STATES SHE "MAKES HERSELF GO EVERY 2 HOURS". PATIENT TOOK A SHOWER TODAY AND DID WELL INDEPENDENTLY. IN ROOM MOST OF THE DAY READING AND WATCHING TELEVISION. VOICED NO OTHER NEEDS THIS SHIFT. EDUCATED IN CALLING THE NURSE FOR HELP AND IS COMPLIANT. WILL CONTINUE TO MONITOR
[2020-08-20 20:55] VITALS: BP 82/44
--- NOTE | 2020-08-21 05:18 | NUR ---
Assumed pt care at 1900,A/OX4. BP on the lower side but noraml per pt. Pt's up ad elysia on the unit encouraged to call for help as needed.Denies pain on assessment. Denies SI/HI and pleasant with staff. Resting quietly at this time with no distress noted,Oxygen in place per NC.Will continue to monitor pt. Frequent checks done on pt for safety.
[2020-08-21 07:48] VITALS: BP 92/40
--- NOTE | 2020-08-21 14:05 | NUR ---
Assumed pt care this am, pt is up ad elysia and very pleasant, compliant with the plan of care. Would often ask if she can use the phone to call her daughter. Pt is very particular with her medications and wants to given and taken in a specific way. Pt is looking forward to going home tomorrow. POC followed with no signs or verbalizatiosn of distress noted.
[2020-08-21 15:48] VITALS: BP 83/46
[2020-08-21 19:30] VITALS: BP 89/50
--- NOTE | 2020-08-22 02:46 | NUR ---
ASSUMED CARE OF PT AT 1900HRS. PT AOX4 AND LETS NEEDS BE KNOWN. PT IS UP AD ZEFERINO. PT DENIES PAIN, NAUSEA, OR SOA. PT DENIES SI/HI. PT ON 2L O2 WHILE SLEEPING. PT WAS ABLE TO GET COMFORTABLE AND SLEEP PART OF THE SHIFT. VSS AND NO S/S OF ACUTE DISTRESS. WILL CONTINUE TO MONITOR.
[2020-08-22 08:00] VITALS: BP 87/42
[2020-08-22] MEDS ORDERED: HALOPERIDOL 1 MG1 MG PO (09:30)
[2020-08-22] MEDS ORDERED: SYNTHROID125 MC1 PO (09:30)
[2020-08-22 10:19] VITALS: BP 89/50
[2020-08-22 10:25] VITALS: BP 89/50
--- NOTE | 2020-08-22 10:53 | NUR ---
Assumed pt care this am, VS stable. Pt is up ad elysia. Diet and medications are tolerated well. No sings or verbalizations of distress noted. DC instructions givne to he pt and informed the daughter of the medications sent to the pharmacy listed. Pt has 3 brown bags and i black trolly bag, given tot he pt. Awaiting for hot die picker by the daughter this pm.
--- NOTE | 2020-08-24 15:37 | NUR ---
CM WAS FORWARDED AND EMAIL RELATED TO [employer] THAT WAS TAKING PLACE THIS AFTERNOON AT 1530. CM CALLED AND NOTIFIED PT'S DTR/TEMP GUARDIAN MIGDALIA AND HER MOTEHR WAS WITH HER AND THEY WERE LOGGING INTO THE ZOOM MEETING TO PARTICIPATE CM WAS SPEAKING WITH THEM. THEY HAD THE INFORMATION FOR PT TO PARTICIPATE. NO OTHER CM INTERVENTION INDICATED.
== END 2020-08-22 13:51 | disposition home or self-care (01) | DRG 315 ==
LOC: 4W 20:25
PROVIDERS: ADMIT Internal Medicine; ATTEND Internal Medicine
DX: I95.9 Hypotension, unspecified (principal); F03.91 Unspecified dementia, unspecified severity, with behavioral disturbance; F30.2 Manic episode, severe with psychotic symptoms; F23 Brief psychotic disorder; I50.32 Chronic diastolic (congestive) heart failure; G93.1 Anoxic brain damage, not elsewhere classified; G93.40 Encephalopathy, unspecified; E03.9 Hypothyroidism, unspecified; K64.9 Unspecified hemorrhoids; I48.0 Paroxysmal atrial fibrillation; N31.9 Neuromuscular dysfunction of bladder, unspecified; G47.33 Obstructive sleep apnea (adult) (pediatric); Z96.653 Presence of artificial knee joint, bilateral; Z20.828 Contact with and (suspected) exposure to other viral communicable diseases; Z88.1 Allergy status to other antibiotic agents; Z88.8 Allergy status to other drugs, medicaments and biological substances; Z79.899 Other long term (current) drug therapy; Z79.82 Long term (current) use of aspirin; Z90.710 Acquired absence of both cervix and uterus
CPT/HCPCS: 10040